=== PATIENT | female | born 1970 | race Caucasian/White ===

== ENCOUNTER 2022-10-26 11:21 | Emergency (ER) | payer OTHER, SELFPAY | END 2022-10-26 13:04 | disposition home or self-care (01) | LOC: CSHERS 11:21 | DX: S63.91XA Sprain of unspecified part of right wrist and hand, initial encounter (principal); S93.401A Sprain of unspecified ligament of right ankle, initial encounter; J45.909 Unspecified asthma, uncomplicated; F17.210 Nicotine dependence, cigarettes, uncomplicated; W01.0XXA Fall on same level from slipping, tripping and stumbling without subsequent striking against object, initial encounter ==

== ENCOUNTER 2023-04-26 05:49 | Emergency (ER) | payer SELFPAY ==
[2023-04-26 07:15] LABS: SARS-CoV-2 NAA Rapid Test Not Detected (NotDetected)
[2023-04-26] MEDS ORDERED: Dexamethasone 10 MG/ML VIAL ONE (08:04)
[2023-04-26] MEDS ORDERED: Ketorolac Tromethamine 30 MG/ML VIAL ONE (08:05)
== END 2023-04-26 08:45 | disposition home or self-care (01) ==
LOC: CSHERS 05:49
DX: J01.90 Acute sinusitis, unspecified (principal); J45.909 Unspecified asthma, uncomplicated; F17.210 Nicotine dependence, cigarettes, uncomplicated; Z20.822 Contact with and (suspected) exposure to COVID-19
CPT/HCPCS: 71045; 96372; J1100; J1885